=== PATIENT | male | born 1950 | race Two or more races ===

== ENCOUNTER 2019-11-07 08:20 | Outpatient (CLI) | payer OTHER | END 2019-11-07 14:54 | disposition home or self-care (01) | LOC: OFIC 805 08:20 | PROVIDERS: ATTEND Otolaryngology | DX: H90.41 Sensorineural hearing loss, unilateral, right ear, with unrestricted hearing on the contralateral side (principal); H61.23 Impacted cerumen, bilateral; H68.103 Unspecified obstruction of Eustachian tube, bilateral ==

== ENCOUNTER 2019-11-28 09:23 | Outpatient (CLI) | payer OTHER | END 2019-11-28 18:52 | disposition home or self-care (01) | LOC: OFIC 805 09:23 | PROVIDERS: ATTEND Otolaryngology | DX: H90.3 Sensorineural hearing loss, bilateral (principal) ==